=== PATIENT | male | born 1985 | race Caucasian/White ===

== ENCOUNTER 2021-12-24 15:57 | Emergency (ER) | payer OTHER ==
[2021-12-24 20:22] VITALS: RESP 16
[2021-12-24] MEDS ORDERED: BEBTELOVIMAB (EUA) 175 MG/2 ML VIAL IV ONE (20:45)
--- NOTE | 2021-12-24 21:21 | XR ---
EXAMINATION TYPE: XR chest 2V DATE OF EXAM: 12/24/2021 9:00 PM COMPARISON: None TECHNIQUE: XR chest 2V Frontal and lateral views of the chest. CLINICAL INDICATION:Male, 36 years old with history of SOB; FINDINGS: Lungs/Pleura: There is no evidence of pleural effusion, focal consolidation, or pneumothorax. Pulmonary vascularity: Unremarkable. Heart/mediastinum: Cardiomediastinal silhouette is unremarkable. Musculoskeletal: No acute osseous pathology. IMPRESSION: No acute cardiopulmonary disease/process.
--- NOTE | 2021-12-24 21:31 | ED ---
General Adult HPI - General Chief complaint: Recheck/Abnormal Lab/Rx Stated complaint: Covid+/infusion Time Seen by Provider: 12/24/21 19:31 Source: patient Mode of arrival: ambulatory Limitations: no limitations - History of Present Illness Initial comments: Patient is a 36-year-old male presenting after positive Covid test, requesting monoclonal antibodies. Patient has been symptomatic since Tuesday, he tested positive yesterday with an at home test. Patient has a history of hypertension and asthma. Patient states that his asthma has been somewhat flared up during this, but he has not really needed to take his rescue inhaler. He admits to body aches, cough, sore throat, congestion. Denies chest pain, fever, chills, nausea, vomiting, abdominal pain, diarrhea, constipation, hematochezia, melena, dysuria, hematuria, urgency, frequency. - Related Data Allergies Allergy/AdvReac Type Severity Reaction Status Date / Time No Known Allergies Allergy Verified 12/24/21 16:23 Review of Systems ROS Statement: Those systems with pertinent positive or pertinent negative responses have been documented in the HPI. ROS Other: All systems not noted in ROS Statement are negative. Past Medical History Past Medical History: Asthma, Hypertension History of Any Multi-Drug Resistant Organisms: None Reported Past Surgical History: Orthopedic Surgery Past Psychological History: No Psychological Hx Reported Smoking Status: Never smoker Past Alcohol Use History: None Reported Past Drug Use History: None Reported General Exam Limitations: no limitations General appearance: alert, in no apparent distress Head exam: Present: atraumatic, normocephalic, normal inspection Eye exam: Present: normal appearance, EOMI. Absent: scleral icterus ENT exam: Present: normal exam, mucous membranes moist Neck exam: Present: normal inspection Respiratory exam: Present: normal lung sounds bilaterally. Absent: respiratory distress, wheezes, rales, rhonchi, stridor Cardiovascular Exam: Present: regular rate, normal rhythm, normal heart sounds. Absent: systolic murmur, diastolic murmur, rubs, gallop, clicks Neurological exam: Present: alert, oriented X3, CN II-XII intact Psychiatric exam: Present: normal affect, normal mood Skin exam: Present: warm, dry, intact, normal color. Absent: rash Course Vital Signs 12/24/21 12/24/21 12/24/21 16:24 20:19 21:49 Temperature 98.6 F 98.8 F Pulse Rate 83 71 81 Respiratory 18 16 16 Rate Blood Pressure 138/88 137/89 123/86 O2 Sat by Pulse 98 99 98 Oximetry Medical Decision Making - Medical Decision Making Patient is a 36-year-old male with history of asthma and hypertension requesting monoclonal antibodies after testing positive for Covid at home. He admits to bodyaches, congestion, sore throat, cough. On examination her lungs are clear to auscultation, unremarkable. Monoclonal antibodies were administered. The patient was monitored for one hour after receiving treatment, he tolerated treatment well with no reaction. Chest x-ray showed no acute process. On reassessment patient states that he is feeling fine. He appears stable for discharge with outpatient follow-up at this time. Report back to ER if any worsening symptoms. I counseled him on supportive treatment. I educated him on quarantined guidelines. Follow-up with PCP in one week. Educated on return parameters alarm symptoms. Answered all questions. Patient conveyed verbal understanding and agreed to the plan. - Lab Data Lab Results 12/24/21 Range/Units 20:17 Coronavirus (PCR) Detected A (Not Detectd) Disposition Clinical Impression: COVID-19 Disposition: HOME SELF-CARE Condition: Good Instructions (If sedation given, give patient instructions): COVID-19 (Coronavirus Disease 2019) (ED), How to Recover from COVID-19 at Home (ED) Additional Instructions: You must quarantine for 5 days starting with your first day of symptoms, followed by 5 days of strict mask wearing any time in public. Utilize Motrin and Tylenol as needed. Utilize your inhaler as needed. Follow-up with your PCP in one week. Report back to ER if any worsening symptoms, including but not limited to chest pain, shortness of breath, fever unresponsive to Motrin and Tylenol, palpitations, loss of consciousness. Is patient prescribed a controlled substance at d/c from ED?: No Referrals: None,Stated [Primary Care Provider] - 12/31/21 Time of Disposition: 21:47
[2021-12-24 21:49] VITALS: BP 123/86; PULSE 81; TEMP 98.8
== END 2021-12-24 21:48 | disposition home or self-care (01) ==
LOC: EC 15:57
DX: U07.1 COVID-19 (principal); I10 Essential (primary) hypertension; J45.909 Unspecified asthma, uncomplicated
CPT/HCPCS: 87635; 71046; 99283; Q0222